=== PATIENT | female | born 1955 | race Caucasian/White ===

== ENCOUNTER 2024-06-22 14:14 | Emergency (ER) | payer MEDICARE, SELFPAY ==
[2024-06-22 14:16] VITALS: BP 178/96
--- NOTE | 2024-06-22 14:25 | ED.GENMED ---
History of Present Illness
<Marian Rodriguez PA-C - Last Filed: 06/23/24 10:06>
General
Chief Complaint: Abdominal Symptoms
Source: patient
Exam Limitations: none
Time Seen by Provider: 06/22/24 14:24
Nursing documentation reviewed up to this point in time: agreed with
History of Present Illness
History of Present Illness:
69-year-old female with no past medical history presents to the emergency department today with concerns of right upper quadrant pain. Patient states that this started 4 days ago. Patient also has nausea and decreased appetite associated with
this. Patient has had no vomiting, no fevers or chills, no constipation or diarrhea. Patient denies any recent travel outside the country. Patient states that the pain waxes and wanes in severity and is unable identify any factors that make the
pain worse. Patient states that the pain is not worse with eating. Patient is never had pain like this before. Patient has past abdominal surgical history of tubal ligation otherwise no other surgeries. Patient denies any dysuria, hematuria.
Patient denies radiation of the pain to the back.
Past History
<Marian Rodriguez PA-C - Last Filed: 06/23/24 10:06>
Past History
ED Past Medical History: None
ED Past Surgical History: None
Social History
Tobacco: Non-smoker
Alcohol: Occasional
Personal:
Living: with family
Family History
Family History: Negative Diabetes, Hypertension, Early CAD, Asthma or Cancer
Review of Systems
<ERICK Kothari Last Filed: 06/23/24 10:06>
Review of Systems
All Other Systems: ROS reviewed and negative except as documented in HPI and ROS
Phy Exam
<ERICK Kothari Last Filed: 06/23/24 10:06>
Physical Exam
Physical Exam:
General: Patient is well appearing and in no acute distress; non-toxic
Skin: Warm and dry, no rashes or lesions
Head: Normocephalic, atraumatic
Eyes: Sclera non-icteric. EOMs intact.
Cardiac: Regular rate and rhythm, no murmurs
Pulm: Normal respiratory effort
Abdomen: Positive Kessler's sign, no tenderness at McBurney's point. No palpable abdominal massses. Normoactive bowel sounds.
Neuro: CN II-XII intact, no focal neurologic deficits.
Psychiatric: Appropriate mood and affect.
Course
<Marian Rodriguez PA-C - Last Filed: 06/23/24 10:06>
Orders/Labs/Results
Orders:
Orders
06/22/24 14:39
IV Insert/Care/Rem.- Treatment PRN
06/22/24 14:43
Complete Blood Count/With Diff Urgent
Comprehensive Metabolic Panel Urgent
Lipase Urgent
Ketorolac [Toradol] 15 mg IV NOW STA
Ondansetron Injectable [Zofran] 4 mg IV NOW STA
06/22/24 14:48
US Abdomen Complete/Upper Urgent
Reason For Exam: right upper quadrant pain
06/22/24 17:01
Ondansetron Injectable [Zofran] 4 mg IV NOW STA
06/22/24 17:20
Urinalysis Reflex To Culture Urgent
Date Specimen was Collected: 06/22/24
Time Specimen was Collected: 14:39
Urine Microscopic Reflex Cult Urgent
Abnormal Lab Results
06/22/24 06/22/24
14:43 17:20
WBC 11.6 H 10^3/uL
(4.8-10.8)
Absolute Neuts (auto) 8.9 H 10^3/uL
(1.4-6.5)
Absolute Monos (auto) 0.7 H 10^3/uL
(0.1-0.6)
Neutrophils % 76.3 H %
(42.2-75.2)
Lymphocytes % 16.4 L %
(20.5-51.1)
BUN 18 H mg/dl
(7-17)
Leukocyte Esterase Rfl Trace A
(Negative)
Urine RBC 3-6 A /HPF
(0-2)
Urine Bacteria (Reflex) Few A
(Negative)
06/22/24 14:43
06/22/24 14:43
Vital Signs
Initial and Last Documented VS:
Initial Vital Signs
Temp Pulse Resp BP Pulse Ox
98.2 F 78 20 178/96 96
06/22/24 14:16 06/22/24 14:16 06/22/24 14:16 06/22/24 14:16 06/22/24 14:16
Last Documented Vital Signs
Temp Pulse Resp BP Pulse Ox
98.0 F 72 20 130/82 98
06/22/24 20:15 06/22/24 20:15 06/22/24 20:15 06/22/24 20:15 06/22/24 20:20
<Rajeev Moraes, DO - Last Filed: 06/22/24 20:10>
Orders/Labs/Results
Orders:
Orders
06/22/24 14:39
IV Insert/Care/Rem.- Treatment PRN
06/22/24 14:43
Complete Blood Count/With Diff Urgent
Comprehensive Metabolic Panel Urgent
Lipase Urgent
Ketorolac [Toradol] 15 mg IV NOW STA
Ondansetron Injectable [Zofran] 4 mg IV NOW STA
06/22/24 14:48
US Abdomen Complete/Upper Urgent
Reason For Exam: right upper quadrant pain
06/22/24 17:01
Ondansetron Injectable [Zofran] 4 mg IV NOW STA
06/22/24 17:20
Urinalysis Reflex To Culture Urgent
Date Specimen was Collected: 06/22/24
Time Specimen was Collected: 14:39
Urine Microscopic Reflex Cult Urgent
Abnormal Lab Results
06/22/24 06/22/24
14:43 17:20
WBC 11.6 H 10^3/uL
(4.8-10.8)
Absolute Neuts (auto) 8.9 H 10^3/uL
(1.4-6.5)
Absolute Monos (auto) 0.7 H 10^3/uL
(0.1-0.6)
Neutrophils % 76.3 H %
(42.2-75.2)
Lymphocytes % 16.4 L %
(20.5-51.1)
BUN 18 H mg/dl
(7-17)
Leukocyte Esterase Rfl Trace A
(Negative)
Urine RBC 3-6 A /HPF
(0-2)
Urine Bacteria (Reflex) Few A
(Negative)
06/22/24 14:43
06/22/24 14:43
Vital Signs
Initial and Last Documented VS:
Initial Vital Signs
Temp Pulse Resp BP Pulse Ox
98.2 F 78 20 178/96 96
06/22/24 14:16 06/22/24 14:16 06/22/24 14:16 06/22/24 14:16 06/22/24 14:16
Last Documented Vital Signs
Temp Pulse Resp BP Pulse Ox
98.0 F 72 20 130/82 98
06/22/24 20:15 06/22/24 20:15 06/22/24 20:15 06/22/24 20:15 06/22/24 20:20
<Marian Rodriguez PA-C - Last Filed: 06/23/24 10:06>
MDM/Problems Addressed
Differential Diagnosis Includes:
Differentials include cholecystitis, biliary colic, cholelithiasis, pancreatitis, gastritis
MDM/Problems Addressed:
69-year-old female no past medical history presents emergency department today with right upper quadrant pain. On exam she has a positive Kessler sign. Her vitals are stable, she is afebrile. Her CMP and CMP are unremarkable. Her lipase is within
normal limits. She has associated nausea and decreased appetite. Will obtain ultrasound to rule out cholecystitis. Ultrasound negative for cholecystitis. Patient symptoms do improve with pain control. Shared decision making with further CAT scan
workup, patient states that she feels good to go home at this time
Chronic conditions affecting care:
n/a
Acute Exacerbation and/or Progression of Chronic Illness:
n/a
<Marian Rodriguez PA-C - Last Filed: 06/23/24 10:06>
*Pulse Oximetry
Patient hypoxic: no
*Critical Care Note
Total Time (30-74mins, 75-104mins- exclusive of procedures): Not Applicable
Data Reviewed
Review of Other/Old Records Reveals: Records (Reviewed ER physician documentation from 04/02/2013, patient seen for abdominal pain and exacerbation of reflux)
Source: patient and records
Prescriptions/Medications Considered But Not Given:
n/a
Further Testing Considered But Not Given:
n/a
<ERICK Kothari Last Filed: 06/23/24 10:06>
Patient Management
Escalation/DeEscalation of care consider admission/obs:
Admit not indicated, patient stable for discharge
ED Attending Note
<ERICK Kothari Last Filed: 06/23/24 10:06>
-
Portions of this chart may have been created with voice recognition software.� Occasional wrong word or��sound alike� substitutions may have occurred due to the inherent limitations of voice recognition software.
<Rajeev Moraes DO - Last Filed: 06/22/24 20:10>
ED Attending Note
Patient seen and examined by attending physician: Yes
I performed the substantive portion of visit, reviewed & personally made and approve the management plan that is documented in note by myself or HANNAH.: Yes
ED Attending Note:
I have seen and evaluated the patient with a [id number] encounter. I have spoken to the advance practicer provider and involved in the medical history, the physical exam, medical decision making.
Evaluation and management service: agree unless noted differently below.
Results interpretation: agree unless noted differently below.
Focused HPI: 69-year-old female presenting with upper abdominal pain. Initially, there was concern that this could be gallbladder related. She complains of nausea
Physical exam: After pain medicine and prolonged observation, all symptoms resolved. She has no abdominal. Abdomen soft and nontender
Medical Decision Making: Ultrasound negative for acute pathology. Blood work without any signs clinical significance or LFT elevation. Urine is negative for infection but there was concerned that this could be a kidney stone. I offered CT of her
abdomen/pelvis to look for kidney stone but she is currently symptom-free. She states she will follow-up with her doctor and have the CT performed as an outpatient if needed
Discharge Plan
Departure
Patient Disposition: Home (Routine Discharge)
Date of Disposition: 06/22/24
Time of Disposition: 20:03
Patient with high blood pressure during this ER visit?: No
Discharge Problem:
Abdominal pain
Instructions: Abdominal Pain
Prescriptions:
No Action
famotidine 40 MG tablet
40 mg PO BID Qty: 30 0RF
Referrals:
Basilio Calhoun DO [Family Provider] -
Activity Restrictions/Additional Instructions:
The blood work, ultrasound and urine did not show any significant abnormalities. It is possible your symptoms are related to a kidney stone. Thankfully, your symptoms have improved. If your symptoms continue to progress, please talk to your
doctor about obtaining a CT as an outpatient or you may return to the emergency department.
Please return for any worsening symptoms.
You may return at any time if you have further concerns.
Please keep your primary care appointment.
Thank you for choosing [facility].
Interventions
Interventions:
*Risk Screen - Suicide Last Done: 06/22/24 14:14
*General Assessment Last Done: 06/22/24 14:16
*Neglect/Abuse Screening Last Done: 06/22/24 14:16
ED- Fall Risk Assessment Last Done: 06/22/24 19:09
*ED COVID-19 Vaccine History Last Done: 06/22/24 14:43
*Nursing Disposition Last Done: 06/22/24 20:20
[id number] Assessment Last Done: 06/22/24 19:09
Discharge Date and Time
Discharge Date/Time: 06/22/24 20:21
Print Language: CITIZEN OF [place]
[2024-06-22 14:43] VITALS: BMI 33.3
[2024-06-22 14:50] LABS: % Basophils 0.4 % (0-2); % Eosinophils 0.8 % (0-6); % Immature Granulocytes 0.3 % (0-0.5); % Lymphocytes 16.4 % (20.5-51.1); % Monocytes 5.8 % (1.7-9.3); % Neutrophils 76.3 % (42.2-75.2); Absolute Basophils 0.1 10^3/uL (0-0.2); Absolute Eosinophils 0.1 10^3/uL (0-0.7); Absolute Lymphocytes 1.9 10^3/uL (1.2-3.4); Absolute Monocytes 0.7 10^3/uL (0.1-0.6); Absolute Neutrophils 8.9 10^3/uL (1.4-6.5); Hematocrit 43.9 % (37.0-47.0); Hemoglobin 15.3 g/dL (12.0-16.0); Mean Corp Hgb Conc. 34.9 g/dL (33.0-37.0); Mean Corpuscular Volume 88.9 fL (81.0-99.0); Nucleated Red Blood Cells % 0 %; Platelet Count 317 10^3/uL (130-400); Red Blood Cell Count 4.94 10^6/uL (4.20-5.40); White Blood Cell Count 11.6 10^3/uL (4.8-10.8)
[2024-06-22] MEDS: TORADOL 15 MG IV (14:50)
[2024-06-22] MEDS: ZOFRAN 4 MG IV ×2 (14:50→17:15)
[2024-06-22 15:00] VITALS: BP 160/80
[2024-06-22 15:17] LABS: ALT (SGPT) 21 U/L (0-35); AST (SGOT) 28 U/L (14-36); Alkaline Phosphatase 101 U/L (38-126); Blood Urea Nitrogen 18 mg/dl (7-17); Calcium 9.4 mg/dl (8.4-10.2); Carbon Dioxide 23 mmol/L (22-30); Estimated Creatinine Clearance 76 ml/min; Glucose 93 mg/dl (70-99); Lipase 90 U/L (23-300); Total Bilirubin 0.7 mg/dl (0.2-1.3); Total Protein 6.8 g/dl (6.3-8.2); eGFR > 60.00
[2024-06-22 15:23] LABS: Chloride 106 mmol/L (98-107); Potassium 4.2 mmol/L (3.5-5.1); Sodium 141 mmol/L (135-145)
[2024-06-22 17:21] VITALS: BP 128/99
[2024-06-22 17:37] LABS: Urine Albumin Negative (Neg - Trace); Urine Bilirubin Negative (Negative); Urine Character Clear (Clear); Urine Color Yellow; Urine Glucose Negative (Negative); Urine Ketone Negative (Negative); Urine Leukocyte Trace (Negative); Urine Nitrite Negative (Negative); Urine Occult Blood Negative (Negative); Urine Urobilinogen Negative (Neg - 1+)
[2024-06-22 18:00] VITALS: BP 144/116
[2024-06-22 18:03] LABS: Urine Calcium Oxalate Crystals Present
[2024-06-22 18:04] LABS: Urine Bacteria Few (Negative)
[2024-06-22 19:09] VITALS: BP 122/79
[2024-06-22 20:15] VITALS: BP 130/82
== END 2024-06-22 20:21 | disposition home or self-care (01) ==
LOC: EMR 14:14
PROVIDERS: Physician Assistant; EMERGENCY PHYSICIAN Student in an Organized Health Care Education/Training Program; FAMILY PHYSICIAN Family Medicine
DX: R10.11 Right upper quadrant pain (principal)
CPT/HCPCS: 99284; 96374; 96375; 96376; 76700; 80053; 81003; 81015; 83690; 85025